=== PATIENT | female | born 1970 | race African-American/Black ===

== ENCOUNTER 2018-09-08 16:53 | Emergency (ER) | payer SELFPAY ==
[~2018-09-08] VITALS: Ht 170.2 cm; Wt 95.5 kg
[2018-09-08 17:28] VITALS: Ht 170.2 cm; Wt 95.5 kg
[2018-09-08 17:30] VITALS: BP 119/68
[2018-09-08] MEDS ORDERED: NORCO 10-325 TA1 TAB PO (17:30)
[2018-09-08] MEDS ORDERED: GABAPENTIN100 MG PO (17:30)
[2018-09-08] MEDS ORDERED: ZOCOR20 MG PO (17:31)
[2018-09-08 17:56] LABS: BASOPHILS 0.2 % (0-2); HEMATOCRIT 37.7 % (36.0-48.0); HEMOGLOBIN 12.6 g/dL (12-16); IMMATURE GRANULOCYTES 0.1 % (0-5); LYMPHOCYTES 35.5 % (15-50); MCH 30.9 pg (26.0-34.0); MCHC 33.4 g/dL (31.0-37.0); MCV 92.4 fL (80.0-100.0); MEAN PLATELET VOLUME 10.3 fL (7.4-10.4); MONOCYTES 7.9 % (2-11); NEUTROPHILS 54.3 % (40-80); PLATELET COUNT 263 10x3/uL (130-400); RBC 4.08 10x6/uL (4.00-5.40); RDW 13.1 % (11.5-14.5); WBC 9.1 10x3/uL (4.8-10.8)
[2018-09-08 18:02] LABS: APTT 28.5 SECONDS (22.8-39.4); INR 0.91 (0.85-1.17); PROTIME 11.8 SECONDS (11.6-15.0)
[2018-09-08 18:06] LABS: ALBUMIN 3.4 g/dL (3.4-5.0); ALKALINE PHOSPHATASE 71 U/L (46-116); ALT (SGPT) 17 U/L (10-68); BILIRUBIN - TOTAL 0.25 mg/dL (0.2-1.3); CALC OSMOLALITY 276 mosm/kg (275-300); CALCIUM 9.1 mg/dL (8.5-10.1); CARBON DIOXIDE 24.8 mmol/L (21.0-32.0); CHLORIDE - SERUM 105 mmol/L (98-107); CREATININE - SERUM 0.7 mg/dL (0.6-1.3); GLUCOSE 82 mg/dL (74-106); POTASSIUM - SERUM 3.9 mmol/L (3.5-5.1); PROTEIN - SERUM 6.9 g/dL (6.4-8.2); SODIUM 140 mmol/L (136-145); UREA NITROGEN 10 mg/dL (7-18); eGFR NON AFRICAN AMERICAN > 90 mL/min (90-120)
[2018-09-08 18:17] LABS: CKMB 0.7 U/L (0.0-3.6); CREATINE KINASE 107 UL (21-215); MAGNESIUM - SERUM 1.7 mg/dL (1.8-2.4)
[2018-09-08 18:21] LABS: TROPONIN-I < 0.017 ng/mL (0.000-0.060)
== END 2018-09-08 21:30 | disposition left against medical advice (07) ==
LOC: D.ER 16:53
PROVIDERS: Family Medicine
DX: F41.9 Anxiety disorder, unspecified (principal); R07.9 Chest pain, unspecified; F17.200 Nicotine dependence, unspecified, uncomplicated

== ENCOUNTER 2019-03-09 17:03 | Emergency (ER) | payer SELFPAY ==
[~2019-03-09] VITALS: Ht 170.2 cm; Wt 85.5 kg
[~2019-03-09 17:03] MED LIST: GABAPENTIN100 MG PO; NORCO 10-325 TA1 TAB PO; ZOCOR20 MG PO
[2019-03-09 17:13] VITALS: Ht 170.2 cm; Wt 85.5 kg
[2019-03-09 20:21] VITALS: BP 126/76
== END 2019-03-09 20:21 | disposition home or self-care (01) ==
LOC: D.ER 17:03
DX: S99.921A Unspecified injury of right foot, initial encounter (principal); W50.0XXA Accidental hit or strike by another person, initial encounter; Y93.89 Activity, other specified; Y92.89 Other specified places as the place of occurrence of the external cause